=== PATIENT | male | born 1990 | race Caucasian/White ===

== ENCOUNTER 2017-05-14 09:02 | Emergency (ER) | payer OTHER ==
[~2017-05-14] VITALS: Ht 187.9 cm; Wt 70.3 kg
[~2017-05-14 09:02] MED LIST: MOTRIN800 MG PO; TOBRADEX 0.1%-0.5 ML OPH
[2017-05-14] MEDS ORDERED: NAPROSYN500 MG PO (09:41)
== END 2017-05-14 11:12 | disposition home or self-care (01) ==
LOC: ED 09:02
DX: S60.00XA Contusion of unspecified finger without damage to nail, initial encounter (principal); F17.200 Nicotine dependence, unspecified, uncomplicated; Z91.040 Latex allergy status; Z88.1 Allergy status to other antibiotic agents; W22.8XXA Striking against or struck by other objects, initial encounter; Y93.89 Activity, other specified; Y92.89 Other specified places as the place of occurrence of the external cause; Y99.8 Other external cause status

== ENCOUNTER 2019-05-27 01:10 | Emergency (ER) | payer SELFPAY ==
[~2019-05-27] VITALS: Wt 69.9 kg
[~2019-05-27 01:10] MED LIST changes: +NAPROSYN500 MG PO
== END 2019-05-27 01:54 | disposition left against medical advice (07) ==
LOC: ED 01:10
DX: S01.81XA Laceration without foreign body of other part of head, initial encounter (principal); Z88.0 Allergy status to penicillin; X58.XXXA Exposure to other specified factors, initial encounter; Y93.89 Activity, other specified; Y92.098 Other place in other non-institutional residence as the place of occurrence of the external cause; Y99.8 Other external cause status

== ENCOUNTER 2024-05-17 16:26 | Emergency (ER) | payer SELFPAY ==
[~2024-05-17] VITALS: Ht 185.4 cm; Wt 68.0 kg
[2024-05-17] MEDS ORDERED: Acetaminophen/Oxycodone 5 MG/325 MG TABLET PO ONE (17:05)
[2024-05-17] MEDS ORDERED: PERCOCET 5-3251 EACH PO (17:44)
== END 2024-05-17 17:51 | disposition home or self-care (01) ==
LOC: ED 16:26
DX: S82.842A Displaced bimalleolar fracture of left lower leg, initial encounter for closed fracture (principal); R60.0 Localized edema; F41.9 Anxiety disorder, unspecified; F32.A Depression, unspecified; Z88.0 Allergy status to penicillin; Y30.XXXA Falling, jumping or pushed from a high place, undetermined intent, initial encounter; Y93.89 Activity, other specified; Y92.89 Other specified places as the place of occurrence of the external cause; Y99.8 Other external cause status

== ENCOUNTER → 2024-05-24 | Day surgery (SDC) | payer SELFPAY ==
[2024-05-24] VITALS (7 sets, daily range): BP systolic 120–147; BP diastolic 83–98
[~2024-05-24] VITALS: Ht 185.4 cm; Wt 68.0 kg
[~2024-05-24] MED LIST changes: +ACETAMINOPHEN 100 ML IV ONE; +Bupivacaine Hydrochloride/Ep2 30 ML VIAL ONE; +Clindamycin Phosphate 50 ML IV ONE; +Clindamycin Phosphate 50 ML IV SCH; +Dexamethasone Sodium Phospha 4 MG/ML VIAL IV ONE; +HYDROmorphONE Hydrochloride 0.5 MG/0.5 ML SYRINGE IV ONE; +HYDROmorphONE Hydrochloride 0.5 MG/0.5 ML SYRINGE ONE; +Ketorolac Tromethamine 30 MG/ML VIAL IV ONE; +Lactated Ringer's Solution 1,000 ML IV ONE; +Lidocaine Hydrochloride 5 ML VIAL IV ONE; +Midazolam Hydrochloride 2 MG/2 ML VIAL IV ONE; +PERCOCET 5-3251 EACH PO; +PROPOFOL 200 MG/20 ML VIAL IV ONE; +Phenylephrine Hydrochloride 10 MG/ML VIAL IV ONE; +Succinylcholine Chloride 200 MG/10 ML SYRINGE IV ONE; +fentaNYL CITRATE 100 MCG/2 ML VIAL IV ONE
[2024-05-24 10:47] LABS: BUN 7 mg/dl (9-23); CHLORIDE 105 mmol/L (98-107)
== END | disposition home or self-care (01) ==
LOC: SDC 05-20 17:00
PROVIDERS: ATTEND Orthopaedic Surgery
DX: S82.842A Displaced bimalleolar fracture of left lower leg, initial encounter for closed fracture (principal); F17.210 Nicotine dependence, cigarettes, uncomplicated; F10.90 Alcohol use, unspecified, uncomplicated; Z88.0 Allergy status to penicillin; Z98.890 Other specified postprocedural states; Z79.899 Other long term (current) drug therapy; X58.XXXA Exposure to other specified factors, initial encounter; Y93.89 Activity, other specified; Y92.89 Other specified places as the place of occurrence of the external cause; Y99.8 Other external cause status

== ENCOUNTER → 2024-06-03 | Outpatient (CLI) | payer SELFPAY ==
[~2024-06-03] MED LIST changes: -ACETAMINOPHEN 100 ML IV ONE; -Bupivacaine Hydrochloride/Ep2 30 ML VIAL ONE; -Clindamycin Phosphate 50 ML IV ONE; -Clindamycin Phosphate 50 ML IV SCH; -Dexamethasone Sodium Phospha 4 MG/ML VIAL IV ONE; -HYDROmorphONE Hydrochloride 0.5 MG/0.5 ML SYRINGE IV ONE; -HYDROmorphONE Hydrochloride 0.5 MG/0.5 ML SYRINGE ONE; -Ketorolac Tromethamine 30 MG/ML VIAL IV ONE; -Lactated Ringer's Solution 1,000 ML IV ONE; -Lidocaine Hydrochloride 5 ML VIAL IV ONE; -Midazolam Hydrochloride 2 MG/2 ML VIAL IV ONE; -PROPOFOL 200 MG/20 ML VIAL IV ONE; -Phenylephrine Hydrochloride 10 MG/ML VIAL IV ONE; -Succinylcholine Chloride 200 MG/10 ML SYRINGE IV ONE; -fentaNYL CITRATE 100 MCG/2 ML VIAL IV ONE
== END | disposition home or self-care (01) ==
LOC: ORTHO 01:57
PROVIDERS: ATTEND Orthopaedic Surgery
DX: S82.842D Displaced bimalleolar fracture of left lower leg, subsequent encounter for closed fracture with routine healing (principal); X58.XXXD Exposure to other specified factors, subsequent encounter

== ENCOUNTER → 2024-07-01 | Outpatient (CLI) | payer SELFPAY | END | disposition home or self-care (01) | LOC: ORTHO 02:12 | PROVIDERS: ATTEND Orthopaedic Surgery | DX: S82.842D Displaced bimalleolar fracture of left lower leg, subsequent encounter for closed fracture with routine healing (principal); Z98.890 Other specified postprocedural states; X58.XXXD Exposure to other specified factors, subsequent encounter ==

== ENCOUNTER 2024-12-09 15:21 | Emergency (ER) | payer SELFPAY ==
[~2024-12-09] VITALS: Ht 185.4 cm; Wt 69.4 kg
== END 2024-12-09 16:21 | disposition home or self-care (01) ==
LOC: ED 15:21
DX: S62.397A Other fracture of fifth metacarpal bone, left hand, initial encounter for closed fracture (principal); Z88.0 Allergy status to penicillin; W22.01XA Walked into wall, initial encounter; Y93.89 Activity, other specified; Y92.89 Other specified places as the place of occurrence of the external cause; Y99.8 Other external cause status